=== PATIENT | male | born 1930 | race Two or more races ===

== ENCOUNTER 2018-10-12 01:39 | Inpatient (IN) | payer MEDICARE, BC ==
[2018-10-12] MEDS ORDERED: MORPHINE SULFATE 4 MG/ML SYRINGE IV STA (02:21)
[2018-10-12 02:43] LABS: Basophils % (A) 0 %; Eosinophils # (A) 0.1 k/uL (0-0.7); Eosinophils % (A) 2 %; HGB 14.8 gm/dL (13.0-17.5); Lymphocytes # (A) 2.1 k/uL (1.0-4.8); Lymphocytes % (A) 28 %; MCH 32.3 pg (25.0-35.0); MCHC 33.5 g/dL (31.0-37.0); MCV 96.1 fL (80.0-100.0); Mean Platelet Volume 7.6; Monocytes # (A) 0.4 k/uL (0-1.0); Monocytes % (A) 6 %; Neutrophils # (A) 4.5 k/uL (1.3-7.7); Neutrophils % (A) 61 %; Platelet Count 187 k/uL (150-450); RBC 4.58 m/uL (4.30-5.90); RDW 13.4 % (11.5-15.5); WBC 7.3 k/uL (3.8-10.6)
[2018-10-12 02:52] LABS: Albumin 4.1 g/dL (3.5-5.0); Calcium 9.2 mg/dL (8.4-10.2); Total Bilirubin 1.2 mg/dL (0.2-1.3); Total Protein 7.3 g/dL (6.3-8.2)
[2018-10-12 03:05] LABS: Potassium 5.2 mmol/L (3.5-5.1)
[2018-10-12] MEDS ORDERED: PIPERACILLIN-TAZOBACTAM 3.375 GM in SODIUM CHLORIDE 0.9% 100 ML IVPB STA (03:14)
--- NOTE | 2018-10-12 03:14 | CT ---
EXAMINATION TYPE: CT abdomen pelvis wo con DATE OF EXAM: 10/12/2018 COMPARISON: None HISTORY: Right flank pain. Abdominal pain CT DLP: 708.5 mGycm Automated exposure control for dose reduction was used. TECHNIQUE: Helical acquisition of images was performed from the lung bases through the pelvis. FINDINGS: There is coarse linear density at the lung bases consistent with scarring and subsegmental atelectasi s. Heart size is normal. There is atherosclerotic vascular calcification. There is a large pneumoperi toneum. Liver shows no focal defect. Spleen appears normal. There is no pancreatic mass. Gallbladder appears fairly normal. There is no adrenal mass. Kidneys have normal size and contour. There is bilateral renal parapelvic c ysts. There is no hydronephrosis. Ureters are not dilated. Abdominal aorta is atheromatous. There are sigmoid diverticula without sign of diverticulitis. Bladder distends smoothly. There is no evidence of a bowel obstruction. There is no ascites. There is small amount of fluid around the liver. There i s no mesenteric edema. There are spondylotic changes in the lumbar spine. I see no compression fractu re. There is bilateral posterior dislocation of the femoral heads. There is deformity of the acetabul a. This is a chronic posterior dislocation. 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 SOURCE OF THE AIR IS NOT IDENTIFIED. NO EVIDENCE OF A BOW EL OBSTRUCTION. COLONIC DIVERTICULOSIS WITHOUT SIGN OF DIVERTICULITIS. ATHEROSCLEROTIC VASCULAR DISEA SE. NO RENAL OBSTRUCTION. MILD SCARRING AND ATELECTASIS AT THE LUNG BASES. THE LATERAL POSTERIOR HIP DISLOCATIONS. THIS EXAM WAS DISCUSSED WITH ER PHYSICIAN AT 3:10 AM.
[2018-10-12] MEDS ORDERED: HYDROmorphone 1 MG/ML 1 ML SYRINGE IVP STA (03:16)
[2018-10-12] MEDS ORDERED: SODIUM CHLORIDE 0.9% 1,000 ML IV ONE (03:21)
--- NOTE | 2018-10-12 03:24 | ED ---
Abdominal Pain HPI - General Chief Complaint: Abdominal Pain Stated Complaint: abd pain Time Seen by Provider: 10/12/18 02:06 Source: patient Mode of arrival: EMS Limitations: no limitations - History of Present Illness Initial Comments: This patient is an 88-year-old man who presents to be evaluated for abdominal pain. He states that it started Sunday in the morning and was in the lower abdomen. States that later in the afternoon the pain seemed to shift to the upper part of the abdomen and tonight became severe. Pain is been constant. He denies noting any relieving factors. He states it is a little worse. Attempts to press on his abdomen. Patient denies vomiting or diarrhea area no change in urination. MD Complaint: abdominal pain Onset/Timin -: hour(s) Location: LUQ, RUQ, epigastric Migration to: other Severity: severe Quality: aching Consistency: constant Improves With: nothing Worsens With: nothing Associated Symptoms: nausea - Related Data Home Medications Medication Instructions Recorded Confirmed Acetaminophen Tab [Tylenol Tab] 325 mg PO BID PRN 09/22/15 09/22/15 Previous Rx's Medication Instructions Recorded Aspirin EC [Ecotrin Low Dose] 81 mg PO DAILY #1 tablet. 09/24/15 Atenolol [Tenormin] 25 mg PO DAILY #30 tab 09/24/15 Edoxaban Tosylate [Savaysa] 30 mg PO DAILY #30 tablet 09/24/15 Folic Acid 1 mg PO DAILY@1200 #30 tab 09/24/15 Furosemide [Lasix] 40 mg PO DAILY #30 tab 09/24/15 Lisinopril [Zestril] 5 mg PO DAILY #30 tab 09/24/15 Multivitamins, Thera [Multivitamin 1 each PO DAILY@1200 #30 tab 09/24/15 (formulary)] Nicotine 14Mg/24Hr Patch [Habitrol] 1 patch TRANSDERM DAILY #30 patch 09/24/15 Thiamine [Vitamin B-1] 100 mg PO DAILY@1200 #30 tab 09/24/15 Allergies Allergy/AdvReac Type Severity Reaction Status Date / Time Sulfa (Sulfonamide Allergy Unknown Verified 10/12/18 01:47 Antibiotics) Childhood Review of Systems ROS Statement: Those systems with pertinent positive or pertinent negative responses have been documented in the HPI. ROS Other: All systems not noted in ROS Statement are negative. Constitutional: Denies: fever, chills, weakness Respiratory: Denies: cough, dyspnea Cardiovascular: Denies: chest pain, palpitations, edema Gastrointestinal: Reports: abdominal pain, nausea. 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 Absent: scleral icterus, conjunctival injection ENT exam: Present: normal oropharynx Respiratory exam: Present: normal lung sounds bilaterally. Absent: respiratory distress, wheezes, rales, rhonchi, stridor Cardiovascular Exam: Present: regular rate, normal rhythm, normal heart sounds. Absent: systolic murmur, diastolic murmur, rubs, gallop GI/Abdominal exam: Present: distended, tenderness, hernia. Absent: guarding, rebound, rigid, mass, pulsatile mass Extremities exam: Present: normal inspection, normal capillary refill. Absent: pedal edema, calf tenderness Back exam: Present: normal inspection. Absent: CVA tenderness (R), CVA tenderness (L) Neurological exam: Present: alert Skin exam: Present: warm, dry, intact, normal color. Absent: rash Course Vital Signs 10/12/18 10/12/18 01:45 02:20 Temperature 98.6 F Pulse Rate 59 L 56 L Respiratory 17 17 Rate Blood Pressure 167/84 148/74 O2 Sat by Pulse 97 95 Oximetry - Reevaluation(s) Reevaluation #1: 10/12/18 03:23 Received call from the radiologist advising of free air on the computed tomography scan. I reviewed the films myself as well. I discussed results with the patient and have spoken with Dr. Harrison, who is the surgeon on-call. He states that he is going to call anesthesia about setting up OR and is going to see the patient. Patient started on additional IV fluid and antibiotics. Additional analgesia. I also called pharmacy to discuss whether any sort of reversal was required for patient's anticoagulant. Medical Decision Making - Lab Data Result diagrams: 10/12/18 02:11 10/12/18 02:11 Lab Results 10/12/18 10/12/18 Range/Units 02:11 02:11 WBC 7.3 (3.8-10.6) k/uL RBC 4.58 (4.30-5.90) m/uL Hgb 14.8 (13.0-17.5) gm/dL Hct 44.0 (39.0-53.0) % MCV 96.1 (80.0-100.0) fL MCH 32.3 (25.0-35.0) pg MCHC 33.5 (31.0-37.0) g/dL RDW 13.4 (11.5-15.5) % Plt Count 187 (150-450) k/uL Neutrophils % 61 % Lymphocytes % 28 % Monocytes % 6 % Eosinophils % 2 % Basophils % 0 % Neutrophils # 4.5 (1.3-7.7) k/uL Lymphocytes # 2.1 (1.0-4.8) k/uL Monocytes # 0.4 (0-1.0) k/uL Eosinophils # 0.1 (0-0.7) k/uL Basophils # 0.0 (0-0.2) k/uL Sodium 137 (137-145) mmol/L Potassium 5.2 H (3.5-5.1) mmol/L Chloride 104 (98-107) mmol/L Carbon Dioxide 26 (22-30) mmol/L Anion Gap 7 mmol/L BUN 26 H (9-20) mg/dL Creatinine 1.12 (0.66-1.25) mg/dL Est GFR (CKD-EPI)AfAm 68 (>60 ml/min/1.73 sqM) Est GFR (CKD-EPI)NonAf 59 (>60 ml/min/1.73 sqM) Glucose 142 H (74-99) mg/dL Calcium 9.2 (8.4-10.2) mg/dL Total Bilirubin 1.2 (0.2-1.3) mg/dL AST 35 (17-59) U/L ALT 32 (21-72) U/L Alkaline Phosphatase 50 (38-126) U/L Total Protein 7.3 (6.3-8.2) g/dL Albumin 4.1 (3.5-5.0) g/dL Amylase 76 (30-110) U/L Lipase 349 H (23-300) U/L Disposition Clinical Impression: Abdominal pain, Perforated abdominal viscus Disposition: ADMITTED IP TO THIS HOSP Condition: Serious Is patient prescribed a controlled substance at d/c from ED?: No Referrals: Lavern Valencia DO [Primary Care Provider] - 1-2 days
[2018-10-12 04:13] LABS: Appearance,Urine Clear (Clear); Bilirubin,Urine Negative (Negative); Blood,Urine Negative (Negative); Color,Urine Yellow; Glucose,Urine (UA) Negative (Negative); Ketones,Urine 1+ (Negative); Leukocyte Esterase,Urine Negative (Negative); Nitrite,Urine Negative (Negative); PH, Urine 5.5 (5.0-8.0); Protein,Urine Trace (Negative); Specific Gravity,Urine 1.022 (1.001-1.035)
[2018-10-12 04:15] LABS: Partial Thromboplastin Time 20.1 sec (22.0-30.0)
[2018-10-12] MEDS ORDERED: NALOXONE 0.4 MG/ML 1 ML VIAL IV PRN ×2 (05:54→08:15)
[2018-10-12] MEDS ORDERED: ONDANSETRON 4 MG/2 ML VIAL IVP PRN ×2 (05:54→08:17)
[2018-10-12] MEDS: HYDROmorphone 0.5 MG/0.5 ML SYRINGE IVP PRN ×2 (06:01→22:33)
[2018-10-12] MEDS: SODIUM CHLORIDE 0.9% 1,000 ML IV SCH ×3 (06:03→22:33)
--- NOTE | 2018-10-12 07:16 | P.GSHP ---
History of Present Illness H&P Date: 10/12/18 Chief Complaint: Acute abdominal pain This is an 88-year-old male who presents to the emergency room with acute abdominal pain. Patient underwent CAT scan was found have free air. Patient states his pain is a 9 out of 10. He looks extremely uncomfortable. 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 09/24/15 10/12/18 Rx Atenolol [Tenormin] 25 mg PO DAILY #30 tab 09/24/15 10/12/18 Rx Folic Acid 1 mg PO DAILY@1200 #30 tab 09/24/15 10/12/18 Rx Thiamine [Vitamin B-1] 100 mg PO DAILY@1200 #30 tab 09/24/15 10/12/18 Rx Allergies Allergy/AdvReac Type Severity Reaction Status Date / Time Sulfa (Sulfonamide Allergy Unknown Verified 10/12/18 01:47 Antibiotics) Childhood Surgical - Exam Vital Signs Temp Pulse Resp BP Pulse Ox 98.6 F 59 L 17 167/84 97 10/12/18 01:45 10/12/18 01:45 10/12/18 01:45 10/12/18 01:45 10/12/18 01:45 - General well developed, moderate distress - Eyes PERRL - ENT normal pinna - Neck no masses - Respiratory normal expansion - Cardiovascular Rhythm: regular - Abdomen Abdomen is firm with rebound tenderness. There is guarding. Results - Labs 10/12/18 02:11 10/12/18 02:11 Abnormal Lab Results - Last 24 Hours (Table) 10/12/18 10/12/18 10/12/18 Range/Units 02:11 02:11 03:35 APTT 20.1 L (22.0-30.0) sec Potassium 5.2 H (3.5-5.1) mmol/L BUN 26 H (9-20) mg/dL Glucose 142 H (74-99) mg/dL Lipase 349 H (23-300) U/L Urine Protein Trace H (Negative) Urine Ketones 1+ H (Negative) Diabetes panel 10/12/18 Range/Units 02:11 Sodium 137 (137-145) mmol/L Potassium 5.2 H (3.5-5.1) mmol/L Chloride 104 (98-107) mmol/L Carbon Dioxide 26 (22-30) mmol/L BUN 26 H (9-20) mg/dL Creatinine 1.12 (0.66-1.25) mg/dL Glucose 142 H (74-99) mg/dL Calcium 9.2 (8.4-10.2) mg/dL AST 35 (17-59) U/L ALT 32 (21-72) U/L Alkaline Phosphatase 50 (38-126) U/L Total Protein 7.3 (6.3-8.2) g/dL Albumin 4.1 (3.5-5.0) g/dL Calcium panel 10/12/18 Range/Units 02:11 Calcium 9.2 (8.4-10.2) mg/dL Albumin 4.1 (3.5-5.0) g/dL Pituitary panel 10/12/18 Range/Units 02:11 Sodium 137 (137-145) mmol/L Potassium 5.2 H (3.5-5.1) mmol/L Chloride 104 (98-107) mmol/L Carbon Dioxide 26 (22-30) mmol/L BUN 26 H (9-20) mg/dL Creatinine 1.12 (0.66-1.25) mg/dL Glucose 142 H (74-99) mg/dL Calcium 9.2 (8.4-10.2) mg/dL Adrenal panel 10/12/18 Range/Units 02:11 Sodium 137 (137-145) mmol/L Potassium 5.2 H (3.5-5.1) mmol/L Chloride 104 (98-107) mmol/L Carbon Dioxide 26 (22-30) mmol/L BUN 26 H (9-20) mg/dL Creatinine 1.12 (0.66-1.25) mg/dL Glucose 142 H (74-99) mg/dL Calcium 9.2 (8.4-10.2) mg/dL Total Bilirubin 1.2 (0.2-1.3) mg/dL AST 35 (17-59) U/L ALT 32 (21-72) U/L Alkaline Phosphatase 50 (38-126) U/L Total Protein 7.3 (6.3-8.2) g/dL Albumin 4.1 (3.5-5.0) g/dL - Imaging CT scan - abdomen: report reviewed (Evidence of free air) Assessment and Plan Assessment: Acute abdomen Free air Patient will undergo exploratory laparotomy as this patient the risk of possible bowel resection, colostomy.
[2018-10-12] MEDS ORDERED: SUCCINYLCHOLINE CHLORIDE 100 MG/5 ML SYR IV ONE (07:19)
[2018-10-12] MEDS ORDERED: fentaNYL (PF) 50 MCG/ML 2 ML AMP ONE (07:19)
[2018-10-12] MEDS ORDERED: ePHEDrine SULFATE/0.9% NACL/PF 50 MG/5 ML SYRINGE IV ONE (07:19)
[2018-10-12] MEDS ORDERED: PHENYLEPHRINE-0.9% NACL SYG 1 MG/10 ML SYRINGE ONE (07:19)
[2018-10-12] MEDS ORDERED: PROPOFOL 10 MG/ML 20 ML VIAL IV ONE (07:19)
[2018-10-12] MEDS ORDERED: IV FLUID CONTINUATION 450 ML IV ONE (07:19)
[2018-10-12] MEDS ORDERED: LIDOCAINE 1% INJ 10MG/ML (20 ML MDV) ONE (07:19)
[2018-10-12] MEDS ORDERED: ROCURONIUM BROMIDE 10 MG/ML 10 ML VIAL IV ONE (07:19)
[2018-10-12] MEDS ORDERED: ROPIVACAINE 5 MG/ML 30 ML VIAL ONE (07:19)
[2018-10-12] MEDS ORDERED: NEOSTIGMINE 1 MG/ML 10 ML VIAL ONE (07:19)
[2018-10-12] MEDS ORDERED: ONDANSETRON 4 MG/2 ML VIAL ONE (07:19)
[2018-10-12] MEDS ORDERED: GLYCOPYRROLATE 0.2 MG/ML 2 ML VIAL ONE (07:19)
[2018-10-12] MEDS ORDERED: LACTATED RINGERS 1,000 ML IV ONE ×3 (07:54→08:25)
[2018-10-12] MEDS ORDERED: HYDROmorphone 1 MG/ML 1 ML SYRINGE IVP PRN (08:15)
[2018-10-12] MEDS ORDERED: METOCLOPRAMIDE 5 MG/ML 2 ML VIAL IVP PRN (08:15)
--- NOTE | 2018-10-12 08:15 | P.OP ---
Date of Procedure: 10/12/18 Preoperative Diagnosis: Perforated viscus Postoperative Diagnosis: Perforated prepyloric duodenal ulcer Procedure(s) Performed: Exploratory laparotomy Gastrorrhaphy with Marv patch Anesthesia: MIMI Surgeon: Aleksandr Harrison Estimated Blood Loss (ml): 20 Pathology: other (Wound culture) Condition: stable Disposition: PACU Description of Procedure: Patient's placed on the operating table in the supine position. He received general anesthesia. His abdomen was prepped and draped in usual sterile fashion. The abdomen was explored through an upper midline incision. There was bilious fluid seen in the abdomen. A wound culture was performed. The duodenum was inspected and there was a 5 mm prepyloric ulcer. This was closed with 3-0 GI silk suture and a modified Marv patch. The abdomen was irrigated there is no other perforations seen. A ANTONY drain was placed over top of the ulcer repair. Brought out through separate stab incision in the right upper quadrant. The abdomen was irrigated with 3 L normal saline. The fascia is closed with looped #1 PDS suture. Skin was closed sukhjinder. Patient top she will was sent to recovery in stable condition.
[2018-10-12] MEDS ORDERED: HYDROmorphone 1 MG/ML 1 ML SYRINGE IVP ONE (08:30)
[2018-10-12] MEDS: ENOXAPARIN 40 MG/0.4 ML SYRINGE SQ SCH (10:45)
--- NOTE | 2018-10-12 11:53 | P.ONQ ---
Anesthesiology Proc Note - PNB - Peripheral Nerve Block Performed Bilateral Rectus Abdominis Single Time Out Performed: Yes (899) Procedure Start Time: 09:00 Procedure Stop Time: 09:10 Indication: Acute Post-Operative Pain, Dx/Pain Location (abdominal pain), Requested by physician Sedation Type: Sedate with meaningful contact maintained Position: Supine Catheter: None Needle Types: [employer] Needle Size: 50mm (2") Needle Gauge: 21 Technique: Ultrasound Injectate: 0.5% Ropivacaine (see comment for volume) (20ml 0.25% each side) Adjunct: Epinephrine (see comment for dilution ratio) (1:200,000) Blood Aspirated: No Pain Paresthesia on Injection Noted: No Resistance on Injection: Normal Events: Uneventful and Well Tolerated
[2018-10-12] MEDS: PANTOPRAZOLE 40 MG/10 ML VIAL IV SCH (21:10)
[2018-10-13 07:44] LABS: Basophils % (A) 0 %; Eosinophils % (A) 0 %; HCT 37.5 % (39.0-53.0); HGB 12.4 gm/dL (13.0-17.5); Lymphocytes # (A) 0.8 k/uL (1.0-4.8); Lymphocytes % (A) 9 %; MCH 31.6 pg (25.0-35.0); MCV 95.9 fL (80.0-100.0); Mean Platelet Volume 6.7; Monocytes # (A) 0.4 k/uL (0-1.0); Monocytes % (A) 5 %; Neutrophils # (A) 7.9 k/uL (1.3-7.7); Neutrophils % (A) 84 %; Platelet Count 145 k/uL (150-450); RBC 3.91 m/uL (4.30-5.90); RDW 13.4 % (11.5-15.5); WBC 9.4 k/uL (3.8-10.6)
[2018-10-13 08:22] LABS: Albumin 2.8 g/dL (3.5-5.0); Calcium 8.2 mg/dL (8.4-10.2); Potassium 4.7 mmol/L (3.5-5.1); Total Bilirubin 0.8 mg/dL (0.2-1.3); Total Protein 5.4 g/dL (6.3-8.2)
--- NOTE | 2018-10-13 09:44 | P.CONS ---
History of Present Illness - Reason for Consult Consult date: 10/12/18 Recommendations regarding antihypertensive medications - History of Present Illness 82-year-old the admitted for a perforated viscus secondary to peptic ulcer disease patient successfully underwent emergency laparotomy clinically doing well denied any symptoms patient has sluggish bowel sounds patient's abdominal surgical site area is clear patient is hypotensive takes atenolol at home which will be resumed. Patient any fever chills nausea vomiting patient the does have a العراقي catheter. Review of Systems REVIEW OF SYSTEMS: CONSTITUTIONAL: No fever, no malaise, no fatigue. HEENT: No recent visual problems or hearing problems. Denied any sore throat. CARDIOVASCULAR: No chest pain, orthopnea, PND, no palpitations, no syncope. PULMONARY: No shortness of breath, no cough, no hemoptysis. GASTROINTESTINAL: No diarrhea, no nausea, no vomiting, no abdominal pain. NEUROLOGICAL: No headaches, no weakness, no numbness. HEMATOLOGICAL: Denies any bleeding or petechiae. GENITOURINARY: Denies any burning micturition, frequency, or urgency. MUSCULOSKELETAL/RHEUMATOLOGICAL: Denies any joint pain, swelling, or any muscle pain. ENDOCRINE: Denies any polyuria or polydipsia. The rest of the 14-point review of systems is negative. 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 History of Any Multi-Drug Resistant Organisms: None Reported Past Surgical History: Adenoidectomy, Appendectomy, Tonsillectomy Past Psychological History: No Psychological Hx Reported Smoking Status: Current every day smoker Past Alcohol Use History: None Reported Past Drug Use History: None Reported - Past Family History Father Additional Family Medical History / Comment(s): macular degeneration Medications and Allergies Home Medications Medication Instructions Recorded Confirmed Type Acetaminophen Tab [Tylenol Tab] 325 mg PO BID PRN 09/22/15 10/12/18 History Aspirin EC [Ecotrin Low Dose] 81 mg PO DAILY #1 tablet. 09/24/15 10/12/18 Rx Atenolol [Tenormin] 25 mg PO DAILY #30 tab 09/24/15 10/12/18 Rx Folic Acid 1 mg PO DAILY@1200 #30 tab 09/24/15 10/12/18 Rx Thiamine [Vitamin B-1] 100 mg PO DAILY@1200 #30 tab 09/24/15 10/12/18 Rx Allergies Allergy/AdvReac Type Severity Reaction Status Date / Time Sulfa (Sulfonamide Allergy Unknown Verified 10/12/18 09:58 Antibiotics) Childhood Physical Exam Vitals: Vital Signs Temp Pulse Resp BP Pulse Ox 10/13/18 08:57 98.4 F 74 16 143/69 95 10/13/18 01:00 97.7 F 65 16 113/65 96 10/12/18 19:25 98.4 F 69 18 115/56 95 Intake and Output 10/12/18 10/13/18 10/13/18 22:59 06:59 14:59 Intake Total 375 1050 Output Total 515 Balance 375 535 Intake: Intake, IV Titration 375 1050 Amount Lactated Ringers 1,000 ml 1050 @ 150 mls/hr IV .Q6H40M [facility] Rx#:[id number] Sodium Chloride 0.9% 1, 375 000 ml @ 125 mls/hr IV . Q8H [facility] Rx#:[id number] Output: Drainage 65 Right Abdomen 65 Urine 450 Uretheral (العراقي) 450 Other: Voiding Method Indwelling Catheter Indwelling Catheter PHYSICAL EXAMINATION: GENERAL: The patient is alert and oriented x3, not in any acute distress. Well developed, well nourished. HEENT: Pupils are round and equally reacting to light. EOMI. No scleral icterus. No conjunctival pallor. Normocephalic, atraumatic. No pharyngeal erythema. No thyromegaly. CARDIOVASCULAR: S1 and S2 present. No murmurs, rubs, or gallops. PULMONARY: Chest is clear to auscultation, no wheezing or crackles. ABDOMEN: Soft, bowel sounds surgical site areas are clean MUSCULOSKELETAL: No joint swelling or deformity. EXTREMITIES: No cyanosis, clubbing, or pedal edema. NEUROLOGICAL: Gross neurological examination did not reveal any focal deficits. SKIN: No rashes. Results CBC & Chem 7: 10/13/18 06:47 10/13/18 06:47 Labs: Abnormal Lab Results - Last 24 Hours (Table) 10/13/18 10/13/18 Range/Units 06:47 06:47 RBC 3.91 L (4.30-5.90) m/uL Hgb 12.4 L (13.0-17.5) gm/dL Hct 37.5 L (39.0-53.0) % Plt Count 145 L (150-450) k/uL Neutrophils # 7.9 H (1.3-7.7) k/uL Lymphocytes # 0.8 L (1.0-4.8) k/uL Chloride 108 H (98-107) mmol/L BUN 21 H (9-20) mg/dL Glucose 126 H (74-99) mg/dL Calcium 8.2 L (8.4-10.2) mg/dL Alkaline Phosphatase 35 L (38-126) U/L Total Protein 5.4 L (6.3-8.2) g/dL Albumin 2.8 L (3.5-5.0) g/dL Microbiology - Last 24 Hours (Table) 10/12/18 03:35 Blood Culture - Preliminary Blood No Growth after 24 hours Assessment and Plan Plan: -Status post laparotomy day 0 for perforated viscus: Patient is clinically doing well continue with Protonix avoid the opiates considering his age. Can use Tylenol and tramadol for pain. -Hypertension patient will be resumed on beta barrie once his blood pressure gets better -Atrial fibrillation not on any anticoagulation at this time patient is on atenolol which will be resumed once his blood pressure gets better -DVT in the past: Patient will need pharmacologic due to prophylaxis -Nicotine abuse
[2018-10-13] MEDS: PANTOPRAZOLE 40 MG/10 ML VIAL IV SCH (10:13)
[2018-10-13] MEDS: SODIUM CHLORIDE 0.9% 1,000 ML IV SCH ×3 (10:14→22:23)
[2018-10-13] MEDS: ENOXAPARIN 40 MG/0.4 ML SYRINGE SQ SCH (10:14)
[2018-10-13] MEDS: THIAMINE 100 MG TAB PO SCH (12:00)
[2018-10-13] MEDS: FOLIC ACID 1 MG TAB PO SCH (12:00)
--- NOTE | 2018-10-13 14:57 | P.PN ---
Progress Note - Text Progress Note Date: 10/13/18 The patient is resting comfortably in his bed. He feels well. He has some incisional pain. On exam his vital signs are stable. His abdomen soft. Incision site is clean dry and intact. The patient's postoperative day 1 from repair of prepyloric duodenal ulcer. The patient will remain nothing by mouth. We anticipate starting his diet tomorrow.
--- NOTE | 2018-10-13 17:21 | P.PN ---
Subjective 82-year-old the admitted for a perforated viscus secondary to peptic ulcer disease patient successfully underwent emergency laparotomy clinically doing well denied any symptoms patient has sluggish bowel sounds patient's abdominal surgical site area is clear patient is hypotensive takes atenolol at home which will be resumed. Patient any fever chills nausea vomiting patient the does have a العراقي catheter. 10/13/2018 Patient does not comparing and if any of pain except when he coughs. Patient still has an NG tube which is still draining will change the fluids 100 mL/h which recheck basic metabolic profile tomorrow. Patient's has sluggish bowel sounds. Did not move his bowel yet. Will use Tylenol for pain and tramadol for pain pain try to avoid opiate analgesia considering his age. Constitutional: Denied any fatigue denied any fever. Cardio vascular: denied any chest pain, palpitations Gastrointestinal denied any nausea vomiting Pulmonary: Denied any shortness of breath cough Neurologic denied any new focal deficits All inpatient medications were reviewed and appropriate changes in these medications as dictated in the interval history and assessment and plan. Objective - Vital Signs Vital signs: Vital Signs Temp 97.7 F 10/13/18 15:00 Pulse 104 H 10/13/18 15:00 Resp 12 10/13/18 15:00 BP 114/68 10/13/18 15:00 Pulse Ox 99 10/13/18 15:00 Intake & Output 10/12/18 10/13/18 10/13/18 18:59 06:59 18:59 Intake Total 1750 1425 Output Total 330 515 Balance 1420 910 Intake: IV 1750 Intake, IV Titration 1425 Amount Lactated Ringers 1,000 ml 1050 @ 150 mls/hr IV .Q6H40M [facility] Rx#:[id number] Sodium Chloride 0.9% 1, 375 000 ml @ 125 mls/hr IV . Q8H [facility] Rx#:[id number] Output: Gastric Drainage 50 Drainage 65 Right Abdomen 65 Urine 230 450 Uretheral (العراقي) 450 Estimated Blood Loss 50 Other: Voiding Method Indwelling Catheter Indwelling Catheter Indwelling Catheter - Exam PHYSICAL EXAMINATION: GENERAL: The patient is alert and oriented x3, not in any acute distress. Well developed, well nourished. NG tube in place HEENT: Pupils are round and equally reacting to light. EOMI. No scleral icterus. No conjunctival pallor. Normocephalic, atraumatic. No pharyngeal erythema. No thyromegaly. CARDIOVASCULAR: S1 and S2 present. No murmurs, rubs, or gallops. PULMONARY: Chest is clear to auscultation, no wheezing or crackles. ABDOMEN: Soft, bowel sounds surgical site areas are clean MUSCULOSKELETAL: No joint swelling or deformity. EXTREMITIES: No cyanosis, clubbing, or pedal edema. NEUROLOGICAL: Gross neurological examination did not reveal any focal deficits. SKIN: No rashes. - Labs CBC & Chem 7: 10/13/18 06:47 10/13/18 06:47 Labs: Abnormal Lab Results - Last 24 Hours (Table) 10/13/18 10/13/18 Range/Units 06:47 06:47 RBC 3.91 L (4.30-5.90) m/uL Hgb 12.4 L (13.0-17.5) gm/dL Hct 37.5 L (39.0-53.0) % Plt Count 145 L (150-450) k/uL Neutrophils # 7.9 H (1.3-7.7) k/uL Lymphocytes # 0.8 L (1.0-4.8) k/uL Chloride 108 H (98-107) mmol/L BUN 21 H (9-20) mg/dL Glucose 126 H (74-99) mg/dL Calcium 8.2 L (8.4-10.2) mg/dL Alkaline Phosphatase 35 L (38-126) U/L Total Protein 5.4 L (6.3-8.2) g/dL Albumin 2.8 L (3.5-5.0) g/dL Microbiology - Last 24 Hours (Table) 10/12/18 08:05 Gram Stain - Preliminary Abdomen Wound Culture - Preliminary 10/12/18 08:05 Anaerobic Culture - Preliminary Peritoneal Fluid 10/12/18 03:35 Blood Culture - Preliminary Blood No Growth after 24 hours Assessment and Plan Plan: -Status post laparotomy day 1 for perforated viscus: Patient is clinically doing well continue with Protonix avoid the opiates considering his age. Can use Tylenol and tramadol for pain. Patient can use to have NG tube drainage. He with IV fluids -Hypertension patient will be resumed on beta barrie once his blood pressure gets better and when he can tolerate oral diet -Atrial fibrillation not on any anticoagulation at this time patient is on atenolol which will be resumed once his blood pressure gets better -DVT in the past: Patient will need pharmacologic due to prophylaxis -Nicotine abuse
[2018-10-14] MEDS: SODIUM CHLORIDE 0.9% 1,000 ML IV SCH ×3 (03:27→23:37)
[2018-10-14] MEDS: ATENOLOL 25 MG TAB PO SCH (10:13)
[2018-10-14] MEDS: FOLIC ACID 1 MG TAB PO SCH (10:13)
[2018-10-14] MEDS: PANTOPRAZOLE 40 MG/10 ML VIAL IV SCH (10:13)
[2018-10-14] MEDS: THIAMINE 100 MG TAB PO SCH (10:13)
[2018-10-14] MEDS: ENOXAPARIN 40 MG/0.4 ML SYRINGE SQ SCH (10:14)
--- NOTE | 2018-10-14 10:55 | P.PN ---
Subjective Progress Note Date: 10/14/18 HISTORY OF PRESENT ILLNESS: Patient is status post repair of prepyloric duodenal ulcer. The patient is currently nothing by mouth. NG tube intact with minimal drainage. He denies passing flatus. His pain is tolerable at this time. PHYSICAL EXAM: VITAL SIGNS: Currently stable. GENERAL: Well-developed in no acute distress. HEENT: No sclera icterus. Extraocular movements grossly intact. Moist buccal mucosa. Head is atraumatic, normocephalic. Hears conversational speech. No nasal drainage. NECK: Supple without lymphadenopathy. CHEST: Non-labored respirations and equal bilateral excursions. CARDIOVASCULAR: Regular rate with regular rhythm. Palpable 2+ radial pulses. ABDOMEN: Soft. Mildly distended. Hypoactive bowel sounds. MUSCULOSKELETAL: No clubbing, cyanosis or edema. NEUROLOGIC: No focal or lateralizing signs. Cranial nerves II through XII grossly intact. PSYCH: Appropriate affect. Alert and oriented to person, place and time. SKIN: Well perfused. Good skin turgor. ASSESSMENT: 1. Status post repair of prepyloric duodenal ulcer PLAN: 1. May discontinue NG 2. May begin ice chips only. Will only when patient begins passing flatus 3. Begin Reglan 10mg IV Q6 hours Nurse practitioner note has been reviewed by physician. Signing provider agrees with the documented findings, assessment, and plan of care. Objective - Vital Signs Vital signs: Vital Signs Temp 97.7 F 10/14/18 09:41 Pulse 105 H 10/14/18 09:41 Resp 16 10/14/18 09:41 BP 117/71 10/14/18 09:41 Pulse Ox 92 L 10/14/18 09:41 Intake & Output 10/13/18 10/14/18 10/14/18 18:59 06:59 18:59 Intake Total 1500 1250 Output Total 850 530 Balance 650 720 Intake: Intake, IV Titration 1500 1250 Amount Sodium Chloride 0.9% 1, 1500 1250 000 ml @ 125 mls/hr IV . Q8H [facility] Rx#:[id number] Output: Gastric Drainage 100 Drainage 50 30 Right Abdomen 50 30 Urine 700 500 Uretheral (العراقي) 700 300 Other: Voiding Method Indwelling Catheter Indwelling Catheter Indwelling Catheter - Labs CBC & Chem 7: 10/13/18 06:47 10/13/18 06:47 Labs: Microbiology - Last 24 Hours (Table) 10/12/18 08:05 Gram Stain - Preliminary Abdomen Wound Culture - Preliminary 10/12/18 03:35 Blood Culture - Preliminary Blood No Growth after 48 hours 10/12/18 08:05 Anaerobic Culture - Preliminary Peritoneal Fluid
[2018-10-14] MEDS: METOCLOPRAMIDE 5 MG/ML 2 ML VIAL IVP SCH ×3 (12:14→23:36)
--- NOTE | 2018-10-14 18:01 | P.PN ---
Subjective Progress Note Date: 10/14/18 Interval history:82-year-old the admitted for a perforated viscus secondary to peptic ulcer disease patient successfully underwent emergency laparotomy clinically doing well denied any symptoms patient has sluggish bowel sounds patient's abdominal surgical site area is clear patient is hypotensive takes atenolol at home which will be resumed. Patient any fever chills nausea vomiting patient the does have a العر[place] catheter. 10/13/2018 Patient does not comparing and if any of pain except when he coughs. Patient still has an NG tube which is still draining will change the fluids 100 mL/h which recheck basic metabolic profile tomorrow. Patient's has sluggish bowel sounds. Did not move his bowel yet. Will use Tylenol for pain and tramadol for pain pain try to avoid opiate analgesia considering his age. 10/14/2018 passing flatus, no bowel movement. NG with minimal drainage.Pain controlled. IV fluids decreased to 100 MLS per hour. Afebrile, normal WBC. Constitutional: Denied any fatigue denied any fever. Cardio vascular: denied any chest pain, palpitations Gastrointestinal denied any nausea vomiting Pulmonary: Denied any shortness of breath cough Neurologic denied any new focal deficits Active Medications Atenolol (Tenormin) 25 mg PO DAILY [facility] Last Admin: 10/14/18 10:13 Dose: 25 mg Enoxaparin Sodium (Lovenox) 40 mg SQ DAILY [facility] Last Admin: 10/14/18 10:14 Dose: 40 mg Folic Acid (Folic Acid) 1 mg PO DAILY@1200 [facility] Last Admin: 10/14/18 10:13 Dose: 1 mg Hydromorphone HCl (Dilaudid) 0.5 mg IVP Q3HR PRN PRN Reason: Moderate Pain Last Admin: 10/12/18 22:33 Dose: 0.5 mg Sodium Chloride (Saline 0.9%) 1,000 mls @ 100 mls/hr IV .Q10H [facility] Last Admin: 10/14/18 16:49 Dose: 125 mls/hr Metoclopramide HCl (Reglan) 10 mg IVP Q6H PRN PRN Reason: Nausea And Vomiting Metoclopramide HCl (Reglan) 10 mg IVP Q6HR [facility] Last Admin: 10/14/18 16:45 Dose: 10 mg Naloxone HCl (Narcan) 0.2 mg IV Q2M PRN PRN Reason: Opioid Reversal Ondansetron HCl (Zofran) 4 mg IVP Q3HR PRN PRN Reason: Nausea And Vomiting Pantoprazole Sodium (Protonix) 40 mg IV DAILY [facility] Last Admin: 10/14/18 10:13 Dose: 40 mg Thiamine HCl (Vitamin B-1) 100 mg PO DAILY@1200 [facility] Last Admin: 10/14/18 10:13 Dose: 100 mg Objective - Vital Signs Vital signs: Vital Signs Temp 98.3 F 10/14/18 15:00 Pulse 90 10/14/18 15:00 Resp 15 10/14/18 16:52 BP 107/70 10/14/18 15:00 Pulse Ox 90 L 10/14/18 15:00 Intake & Output 10/13/18 10/14/18 10/14/18 18:59 06:59 18:59 Intake Total 1500 1250 1000 Output Total 850 530 420 Balance 650 720 580 Intake: Intake, IV Titration 1500 1250 1000 Amount Sodium Chloride 0.9% 1, 1500 1250 1000 000 ml @ 125 mls/hr IV . Q8H [facility] Rx#:[id number] Output: Gastric Drainage 100 Drainage 50 30 20 Right Abdomen 50 30 20 Urine 700 500 400 Uretheral (العراق[place]) 700 300 400 Other: Voiding Method Indwelling Catheter Indwelling Catheter Indwelling Catheter - Exam GENERAL: The patient is sitting up in a chair, alert and oriented x3, no acute distress. HEENT: Pupils are round and equally reacting to light. EOMI. No scleral icterus. No conjunctival pallor. Normocephalic, atraumatic. NG tube present. CARDIOVASCULAR: S1 and S2 present. No murmurs, rubs, or gallops. PULMONARY: Chest is clear to auscultation, no wheezing or crackles. ABDOMEN: Soft, bowel sounds, S/P surgery, surgical site areas are clean, hypoactive bowel sounds MUSCULOSKELETAL: No joint swelling or deformity. EXTREMITIES: No cyanosis, clubbing, or pedal edema. NEUROLOGICAL: Gross neurological examination did not reveal any focal deficits. SKIN: No rashes. Microbiology 10/12/18 08:05 Abdomen Gram Stain - Preliminary 10/12/18 08:05 Abdomen Wound Culture - Preliminary 10/12/18 03:35 Blood Blood Culture - Preliminary No Growth after 48 hours 10/12/18 08:05 Peritoneal Fluid Anaerobic Culture - Preliminary - Labs CBC & Chem 7: 10/13/18 06:47 10/13/18 06:47 Labs: Microbiology - Last 24 Hours (Table) 10/12/18 08:05 Gram Stain - Preliminary Abdomen Wound Culture - Preliminary 10/12/18 03:35 Blood Culture - Preliminary Blood No Growth after 48 hours Assessment and Plan Assessment: -Status post laparotomy day 1 for perforated viscus: Patient is clinically doing well continue with Protonix avoid the opiates considering his age. Can use Tylenol and tramadol for pain. Patient can use to have NG tube drainage. He with IV fluids -Hypertension patient will be resumed on beta barrie once his blood pressure gets better and when he can tolerate oral diet -Atrial fibrillation not on any anticoagulation at this time patient is on atenolol which will be resumed once his blood pressure gets better -DVT in the past: Patient will need pharmacologic due to prophylaxis -Nicotine abuse Plan: Continue current medication regime , Reglan, monitoring and symptomatic treatment. NG tube removal/diet advancement as per surgery. Increase ambulation as tolerated. Aggressive pulmonary toileting with incentive spirometer reinforced. IV fluid rate decreased with chest x-ray ordered for a.m. Wound/Peritoneal cultures pending. The impression and plan of care has been dictated as directed. : I performed a history and examination of this patient, discussed the same with the dictator. I agree with the dictator's note ,documented as a scribe. Any additional findings or plans will be noted.
[2018-10-15] MEDS: HYDROmorphone 0.5 MG/0.5 ML SYRINGE IVP PRN (04:44)
[2018-10-15] MEDS: METOCLOPRAMIDE 5 MG/ML 2 ML VIAL IVP SCH ×3 (05:40→17:48)
--- NOTE | 2018-10-15 07:48 | XR ---
EXAMINATION TYPE: XR chest 2V DATE OF EXAM: 10/15/2018 COMPARISON: Chest x-ray and CTA chest September 22, 2015. HISTORY: Hypoxia. TECHNIQUE: Frontal and lateral views of the chest are obtained. FINDINGS: The cardiac silhouette size is upper limits of normal. Small bilateral pleural effusions ar e now present with associated bibasilar atelectasis and/or infiltrate. Mild central vascular congesti on is now seen. No pneumothorax is noted bilaterally. Atherosclerotic and ectatic thoracic aorta is n oted. The osseous structures are intact. IMPRESSION: Correlate for CHF exacerbation or fluid overload state as there are new small bilateral pleural effusions and mild central vascular congestion present. Associated bibasilar atelectasis and/ or infiltrate is noted.
[2018-10-15] MEDS: PANTOPRAZOLE 40 MG/10 ML VIAL IV SCH (08:42)
[2018-10-15] MEDS: THIAMINE 100 MG TAB PO SCH (08:43)
[2018-10-15] MEDS: ENOXAPARIN 40 MG/0.4 ML SYRINGE SQ SCH (08:43)
[2018-10-15] MEDS: FOLIC ACID 1 MG TAB PO SCH (08:43)
[2018-10-15] MEDS: ATENOLOL 25 MG TAB PO SCH (08:43)
[2018-10-15 11:45] LABS: Basophils % (A) 0 %; Eosinophils # (A) 0.1 k/uL (0-0.7); Eosinophils % (A) 0 %; HCT 40.7 % (39.0-53.0); HGB 13.6 gm/dL (13.0-17.5); Lymphocytes # (A) 1.3 k/uL (1.0-4.8); Lymphocytes % (A) 10 %; MCH 31.8 pg (25.0-35.0); MCHC 33.3 g/dL (31.0-37.0); MCV 95.4 fL (80.0-100.0); Mean Platelet Volume 7.1; Monocytes # (A) 0.5 k/uL (0-1.0); Monocytes % (A) 4 %; Neutrophils # (A) 10.8 k/uL (1.3-7.7); Neutrophils % (A) 85 %; Platelet Count 191 k/uL (150-450); RBC 4.26 m/uL (4.30-5.90); RDW 13.3 % (11.5-15.5); WBC 12.8 k/uL (3.8-10.6)
[2018-10-15 11:56] LABS: Calcium 8.1 mg/dL (8.4-10.2); Potassium 4.1 mmol/L (3.5-5.1)
--- NOTE | 2018-10-15 12:34 | P.PN ---
Subjective Progress Note Date: 10/15/18 HISTORY OF PRESENT ILLNESS: Patient is status post repair of prepyloric duodenal ulcer. Patient states his pain is tolerable at this time. ANTONY drain is intact with serosanguineous drainage. He is passing flatus. He had a bowel movement this morning. He is tolerating ice chips. PHYSICAL EXAM: VITAL SIGNS: Currently stable. GENERAL: Well-developed in no acute distress. HEENT: No sclera icterus. Extraocular movements grossly intact. Moist buccal mucosa. Head is atraumatic, normocephalic. Hears conversational speech. No nasal drainage. NECK: Supple without lymphadenopathy. CHEST: Non-labored respirations and equal bilateral excursions. CARDIOVASCULAR: Regular rate with regular rhythm. Palpable 2+ radial pulses. ABDOMEN: Soft. Mildly distended. Hypoactive bowel sounds. MUSCULOSKELETAL: No clubbing, cyanosis or edema. NEUROLOGIC: No focal or lateralizing signs. Cranial nerves II through XII grossly intact. PSYCH: Appropriate affect. Alert and oriented to person, place and time. SKIN: Well perfused. Good skin turgor. ASSESSMENT: 1. Status post repair of prepyloric duodenal ulcer PLAN: 1. Continue Reglan 2. May begin clear liquid diet. Advance as tolerated 3. Activity as tolerated 4. Incentive spirometry 5. Discontinue IV fluids 6. Lasix IV x 1 dose 7. Discontinue urinary catheter Nurse practitioner note has been reviewed by physician. Signing provider agrees with the documented findings, assessment, and plan of care. Objective - Vital Signs Vital signs: Vital Signs Temp 98.2 F 10/15/18 08:46 Pulse 64 10/15/18 08:46 Resp 18 10/15/18 08:46 BP 126/66 10/15/18 08:46 Pulse Ox 91 L 10/15/18 08:46 Intake & Output 10/14/18 10/15/18 10/15/18 18:59 06:59 18:59 Intake Total 1000 350 Output Total 420 575 500 Balance 580 -225 -500 Intake: Intake, IV Titration 1000 350 Amount Sodium Chloride 0.9% 1, 1000 350 000 ml @ 100 mls/hr IV . Q10H [facility] Rx#:[id number] Output: Drainage 20 Right Abdomen 20 Urine 400 575 500 Uretheral (العراقي) 400 500 Other: Voiding Method Indwelling Catheter Indwelling Catheter Indwelling Catheter # Bowel Movements 1 - Labs CBC & Chem 7: 10/15/18 11:23 10/15/18 11:23 Labs: Abnormal Lab Results - Last 24 Hours (Table) 10/15/18 10/15/18 Range/Units 11:23 11:23 WBC 12.8 H (3.8-10.6) k/uL RBC 4.26 L (4.30-5.90) m/uL Neutrophils # 10.8 H (1.3-7.7) k/uL Chloride 112 H (98-107) mmol/L Carbon Dioxide 20 L (22-30) mmol/L BUN 24 H (9-20) mg/dL Calcium 8.1 L (8.4-10.2) mg/dL Microbiology - Last 24 Hours (Table) 10/12/18 08:05 Anaerobic Culture - Preliminary Peritoneal Fluid 10/12/18 08:05 Gram Stain - Final Abdomen Wound Culture - Final 10/12/18 03:35 Blood Culture - Preliminary Blood No Growth after 72 hours
[2018-10-15] MEDS ORDERED: FUROSEMIDE 10 MG/ML 2 ML VIAL IV ONE (12:45)
[2018-10-15] MEDS ORDERED: FUROSEMIDE 10 MG/ML 2 ML VIAL IV STA (16:06)
[2018-10-15] MEDS: SODIUM CHLORIDE 0.9% 1,000 ML IV SCH (19:00)
--- NOTE | 2018-10-15 20:23 | P.PN ---
Subjective Progress Note Date: 10/15/18 Interval history:82-year-old the admitted for a perforated viscus secondary to peptic ulcer disease patient successfully underwent emergency laparotomy clinically doing well denied any symptoms patient has sluggish bowel sounds patient's abdominal surgical site area is clear patient is hypotensive takes atenolol at home which will be resumed. Patient any fever chills nausea vomiting patient the does have a [place]عر[place] catheter. 10/13/2018 Patient does not comparing and if any of pain except when he coughs. Patient still has an NG tube which is still draining will change the fluids 100 mL/h which recheck basic metabolic profile tomorrow. Patient's has sluggish bowel sounds. Did not move his bowel yet. Will use Tylenol for pain and tramadol for pain pain try to avoid opiate analgesia considering his age. 10/14/2018 passing flatus, no bowel movement. NG with minimal drainage.Pain controlled. IV fluids decreased to 100 MLS per hour. Afebrile, normal WBC. 10/15/2018 sitting up in chair, pain controlled. chest x-ray suggestive of fluid overload, small new bilateral pleural effusions. IV fluids discontinued. Positive bowel movement, burping, positive flatus. Diet advanced as per surgery. Sodium 142. Afebrile, WBC 12.8. Creatinine 0.9. Hemoglobin 13.6. Constitutional: Denied any fatigue denied any fever. Cardio vascular: denied any chest pain, palpitations Gastrointestinal denied any nausea vomiting Pulmonary: Denied any shortness of breath cough Neurologic denied any new focal deficits Active Medications Atenolol (Tenormin) 25 mg PO DAILY [facility] Last Admin: 10/14/18 10:13 Dose: 25 mg Enoxaparin Sodium (Lovenox) 40 mg SQ DAILY [facility] Last Admin: 10/14/18 10:14 Dose: 40 mg Folic Acid (Folic Acid) 1 mg PO DAILY@1200 [facility] Last Admin: 10/14/18 10:13 Dose: 1 mg Hydromorphone HCl (Dilaudid) 0.5 mg IVP Q3HR PRN PRN Reason: Moderate Pain Last Admin: 10/12/18 22:33 Dose: 0.5 mg Sodium Chloride (Saline 0.9%) 1,000 mls @ 100 mls/hr IV .Q10H [facility] Last Admin: 10/14/18 16:49 Dose: 125 mls/hr Metoclopramide HCl (Reglan) 10 mg IVP Q6H PRN PRN Reason: Nausea And Vomiting Metoclopramide HCl (Reglan) 10 mg IVP Q6HR [facility] Last Admin: 10/14/18 16:45 Dose: 10 mg Naloxone HCl (Narcan) 0.2 mg IV Q2M PRN PRN Reason: Opioid Reversal Ondansetron HCl (Zofran) 4 mg IVP Q3HR PRN PRN Reason: Nausea And Vomiting Pantoprazole Sodium (Protonix) 40 mg IV DAILY [facility] Last Admin: 10/14/18 10:13 Dose: 40 mg Thiamine HCl (Vitamin B-1) 100 mg PO DAILY@1200 [facility] Last Admin: 10/14/18 10:13 Dose: 100 mg Objective - Vital Signs Vital signs: Vital Signs Temp 98.0 F 10/15/18 15:00 Pulse 66 10/15/18 15:00 Resp 18 10/15/18 15:00 BP 126/62 10/15/18 15:00 Pulse Ox 92 L 10/15/18 15:00 Intake & Output 10/15/18 10/15/18 10/16/18 06:59 18:59 06:59 Intake Total 350 440 Output Total 575 820 Balance -225 -380 Intake: Intake, IV Titration 350 100 Amount Sodium Chloride 0.9% 1, 350 100 000 ml @ 50 mls/hr IV . Q20H [facility] Rx#:[id number] Oral 340 Output: Drainage 20 Right Abdomen 20 Urine 575 800 Uretheral (العراقي) 500 Other: Voiding Method Indwelling Catheter Indwelling Catheter # Bowel Movements 1 - Exam GENERAL: The patient is sitting up in a chair, alert and oriented x3, no acute distress. HEENT: Pupils are round and equally reacting to light. EOMI. No scleral icterus. No conjunctival pallor. Normocephalic, atraumatic. Oral mucosa moist CARDIOVASCULAR: S1 and S2 present. No murmurs, rubs, or gallops. PULMONARY: Nonlabored, Chest is clear to auscultation, diminished bilateral bases, no wheezing or crackles. ABDOMEN: Soft, bowel sounds, S/P surgery, surgical site areas are clean, hypoactive bowel sounds MUSCULOSKELETAL: No joint swelling or deformity. EXTREMITIES: No cyanosis, clubbing, or pedal edema. NEUROLOGICAL: Gross neurological examination did not reveal any focal deficits. SKIN: No rashes. - Labs CBC & Chem 7: 10/15/18 11:23 10/15/18 11:23 Labs: Abnormal Lab Results - Last 24 Hours (Table) 10/15/18 10/15/18 Range/Units 11:23 11:23 WBC 12.8 H (3.8-10.6) k/uL RBC 4.26 L (4.30-5.90) m/uL Neutrophils # 10.8 H (1.3-7.7) k/uL Chloride 112 H (98-107) mmol/L Carbon Dioxide 20 L (22-30) mmol/L BUN 24 H (9-20) mg/dL Calcium 8.1 L (8.4-10.2) mg/dL Microbiology - Last 24 Hours (Table) 10/12/18 08:05 Anaerobic Culture - Preliminary Peritoneal Fluid 10/12/18 08:05 Gram Stain - Final Abdomen Wound Culture - Final 10/12/18 03:35 Blood Culture - Preliminary Blood No Growth after 72 hours Assessment and Plan Assessment: -Status post laparotomy for perforated viscu -Hypertension -Atrial fibrillation, currently on Lovenox -DVT in the past -Nicotine abuse -Fluid overload, new small bilateral pleural effusions Plan: Continue current medication regime , monitoring and symptomatic treatment. Diet advancement as per surgery .PIVL IV. Lasix 20mg IVP X 1. Follow-up chest x-ray in a.m.Aggressive pulmonary toileting with incentive spirometer reinforced. Peritoneal fluid cultures pending. Increase activity as tolerated. PT/OT. Subacute rehab at discharge. The impression and plan of care has been dictated as directed. : I performed a history and examination of this patient, discussed the same with the dictator. I agree with the dictator's note ,documented as a scribe. Any additional findings or plans will be noted.
[2018-10-16] MEDS: METOCLOPRAMIDE 5 MG/ML 2 ML VIAL IVP SCH ×4 (00:46→17:36)
[2018-10-16 07:22] LABS: Basophils % (A) 0 %; Eosinophils # (A) 0.3 k/uL (0-0.7); Eosinophils % (A) 3 %; HCT 43.2 % (39.0-53.0); HGB 13.8 gm/dL (13.0-17.5); Lymphocytes # (A) 1.8 k/uL (1.0-4.8); Lymphocytes % (A) 16 %; MCH 30.9 pg (25.0-35.0); MCV 96.6 fL (80.0-100.0); Mean Platelet Volume 7.1; Monocytes # (A) 0.4 k/uL (0-1.0); Monocytes % (A) 3 %; Neutrophils # (A) 8.8 k/uL (1.3-7.7); Neutrophils % (A) 76 %; Platelet Count 216 k/uL (150-450); RBC 4.47 m/uL (4.30-5.90); RDW 13.1 % (11.5-15.5); WBC 11.5 k/uL (3.8-10.6)
[2018-10-16 07:29] LABS: Calcium 8.3 mg/dL (8.4-10.2); Potassium 3.4 mmol/L (3.5-5.1)
--- NOTE | 2018-10-16 07:55 | XR ---
EXAMINATION TYPE: XR chest 2V DATE OF EXAM: 10/16/2018 COMPARISON: 10/15/2018 HISTORY: 88-year-old male follow-up fluid overload, pleural effusions TECHNIQUE: AP and lateral views FINDINGS: Heart borderline enlarged. Mild elongation thoracic aorta. Mild interstitial prominence similar. Cont inued small pleural effusions with adjacent bibasilar opacities. IMPRESSION: Overall stable mild pulmonary vascular congestion along with small right greater left pleural effusio ns with adjacent atelectasis and/or consolidation.
[2018-10-16] MEDS: ENOXAPARIN 40 MG/0.4 ML SYRINGE SQ SCH (08:02)
[2018-10-16] MEDS: PANTOPRAZOLE 40 MG/10 ML VIAL IV SCH (08:02)
[2018-10-16] MEDS: ATENOLOL 25 MG TAB PO SCH (08:02)
[2018-10-16] MEDS ORDERED: Potassium Replacement Protocol 1 EACH MISC MISCELLANE PRN (09:53)
--- NOTE | 2018-10-16 10:56 | P.PN ---
Subjective Progress Note Date: 10/16/18 HISTORY OF PRESENT ILLNESS: Patient is status post repair of prepyloric duodenal ulcer. Patient states his pain is tolerable at this time. ANTONY drain is intact with minimal serosanguineous drainage. He is passing flatus. +BM. Tolerating clear liquid diet. PHYSICAL EXAM: VITAL SIGNS: Currently stable. GENERAL: Well-developed in no acute distress. HEENT: No sclera icterus. Extraocular movements grossly intact. Moist buccal mucosa. Head is atraumatic, normocephalic. Hears conversational speech. No nasal drainage. NECK: Supple without lymphadenopathy. CHEST: Non-labored respirations and equal bilateral excursions. CARDIOVASCULAR: Regular rate with regular rhythm. Palpable 2+ radial pulses. ABDOMEN: Soft. Mildly distended. Hypoactive bowel sounds. MUSCULOSKELETAL: No clubbing, cyanosis or edema. NEUROLOGIC: No focal or lateralizing signs. Cranial nerves II through XII grossly intact. PSYCH: Appropriate affect. Alert and oriented to person, place and time. SKIN: Well perfused. Good skin turgor. ASSESSMENT: 1. Status post repair of prepyloric duodenal ulcer PLAN: 1. Advance diet to full liquid diet 2. Incentive spirometry 3. Activity as tolerated Nurse practitioner note has been reviewed by physician. Signing provider agrees with the documented findings, assessment, and plan of care. Objective - Vital Signs Vital signs: Vital Signs Temp 97.6 F 10/16/18 07:00 Pulse 81 10/16/18 07:00 Resp 18 10/16/18 08:00 BP 137/75 10/16/18 07:00 Pulse Ox 93 L 10/16/18 07:00 Intake & Output 10/15/18 10/16/18 10/16/18 18:59 06:59 18:59 Intake Total 440 Output Total 820 425 Balance -380 -425 Intake: Intake, IV Titration 100 Amount Sodium Chloride 0.9% 1, 100 000 ml @ 50 mls/hr IV . Q20H [facility] Rx#:[id number] Oral 340 Output: Drainage 20 Right Abdomen 20 Urine 800 425 Uretheral (العراقي) 500 Other: Voiding Method Indwelling Catheter Toilet Toilet # Voids 1 - Labs CBC & Chem 7: 10/16/18 06:49 10/16/18 06:49 Labs: Abnormal Lab Results - Last 24 Hours (Table) 10/15/18 10/15/18 10/16/18 Range/Units 11:23 11:23 06:49 WBC 12.8 H 11.5 H (3.8-10.6) k/uL RBC 4.26 L (4.30-5.90) m/uL Neutrophils # 10.8 H 8.8 H (1.3-7.7) k/uL Potassium (3.5-5.1) mmol/L Chloride 112 H (98-107) mmol/L Carbon Dioxide 20 L (22-30) mmol/L BUN 24 H (9-20) mg/dL Glucose (74-99) mg/dL Calcium 8.1 L (8.4-10.2) mg/dL 10/16/18 Range/Units 06:49 WBC (3.8-10.6) k/uL RBC (4.30-5.90) m/uL Neutrophils # (1.3-7.7) k/uL Potassium 3.4 L (3.5-5.1) mmol/L Chloride 108 H (98-107) mmol/L Carbon Dioxide (22-30) mmol/L BUN 25 H (9-20) mg/dL Glucose 133 H (74-99) mg/dL Calcium 8.3 L (8.4-10.2) mg/dL Microbiology - Last 24 Hours (Table) 10/12/18 03:35 Blood Culture - Preliminary Blood No Growth after 96 hours 10/12/18 08:05 Anaerobic Culture - Preliminary Peritoneal Fluid 10/12/18 08:05 Gram Stain - Final Abdomen Wound Culture - Final
[2018-10-16] MEDS: FOLIC ACID 1 MG TAB PO SCH (11:38)
[2018-10-16] MEDS: THIAMINE 100 MG TAB PO SCH (11:38)
[2018-10-16 13:04] VITALS: BMI 29.2
[2018-10-16] MEDS ORDERED: FUROSEMIDE 10 MG/ML 2 ML VIAL IV STA (17:30)
--- NOTE | 2018-10-16 17:36 | P.PN ---
Subjective Progress Note Date: 10/16/18 Interval history:82-year-old the admitted for a perforated viscus secondary to peptic ulcer disease patient successfully underwent emergency laparotomy clinically doing well denied any symptoms patient has sluggish bowel sounds patient's abdominal surgical site area is clear patient is hypotensive takes atenolol at home which will be resumed. Patient any fever chills nausea vomiting patient the does have a العراقي catheter. 10/13/2018 Patient does not comparing and if any of pain except when he coughs. Patient still has an NG tube which is still draining will change the fluids 100 mL/h which recheck basic metabolic profile tomorrow. Patient's has sluggish bowel sounds. Did not move his bowel yet. Will use Tylenol for pain and tramadol for pain pain try to avoid opiate analgesia considering his age. 10/14/2018 passing flatus, no bowel movement. NG with minimal drainage.Pain controlled. IV fluids decreased to 100 MLS per hour. Afebrile, normal WBC. 10/15/2018 sitting up in chair, pain controlled. chest x-ray suggestive of fluid overload, small new bilateral pleural effusions. IV fluids discontinued. Positive bowel movement, burping, positive flatus. Diet advanced as per surgery. Sodium 142. Afebrile, WBC 12.8. Creatinine 0.9. Hemoglobin 13.6. 10/16/2018 Tolerating clear liquid diet. passing flatus, positive bowel movement. Yesterday gave 1 dose of Lasix for fluid overload .Chest x-ray today reporting stable mild pulmonary vascular congestion, small right greater than left pleural effusions with adjacent atelectasis/consolidation. Maintaining O2 sats of 90-95% on 2 L nasal cannula. Needs much encouragement with incentive spirometer. Creatinine down to 0.99 .Potassium 3.4. Constitutional: Denied any fatigue denied any fever. Cardio vascular: denied any chest pain, palpitations Gastrointestinal denied any nausea vomiting Pulmonary: Denied any shortness of breath, occasional cough Neurologic denied any new focal deficits Active Medications Atenolol (Tenormin) 25 mg PO DAILY [facility] Last Admin: 10/16/18 08:02 Dose: 25 mg Enoxaparin Sodium (Lovenox) 40 mg SQ DAILY [facility] Last Admin: 10/16/18 08:02 Dose: 40 mg Folic Acid (Folic Acid) 1 mg PO DAILY@1200 [facility] Last Admin: 10/16/18 11:38 Dose: 1 mg Hydromorphone HCl (Dilaudid) 0.5 mg IVP Q3HR PRN PRN Reason: Moderate Pain Last Admin: 10/15/18 04:44 Dose: 0.5 mg Metoclopramide HCl (Reglan) 10 mg IVP Q6H PRN PRN Reason: Nausea And Vomiting Metoclopramide HCl (Reglan) 10 mg IVP Q6HR [facility] Last Admin: 10/16/18 11:36 Dose: Not Given Miscellaneous Information (Potassium Per Protocol) 1 each MISCELLANE DAILY PRN ; Protocol PRN Reason: Per Protocol Naloxone HCl (Narcan) 0.2 mg IV Q2M PRN PRN Reason: Opioid Reversal Ondansetron HCl (Zofran) 4 mg IVP Q3HR PRN PRN Reason: Nausea And Vomiting Pantoprazole Sodium (Protonix) 40 mg IV DAILY [facility] Last Admin: 10/16/18 08:02 Dose: 40 mg Thiamine HCl (Vitamin B-1) 100 mg PO DAILY@1200 [facility] Last Admin: 10/16/18 11:38 Dose: 100 mg Objective - Vital Signs Vital signs: Vital Signs Temp 98.3 F 10/16/18 14:11 Pulse 63 10/16/18 14:11 Resp 18 10/16/18 08:00 BP 97/63 10/16/18 14:11 Pulse Ox 96 10/16/18 14:11 Intake & Output 10/15/18 10/16/18 10/16/18 18:59 06:59 18:59 Intake Total 440 Output Total 820 425 Balance -380 -425 Weight 84.822 kg Intake: Intake, IV Titration 100 Amount Sodium Chloride 0.9% 1, 100 000 ml @ 50 mls/hr IV . Q20H [facility] Rx#:[id number] Oral 340 Output: Drainage 20 Right Abdomen 20 Urine 800 425 Uretheral (العراقي) 500 Other: Voiding Method Indwelling Catheter Toilet Toilet # Voids 1 1 # Bowel Movements 2 - Exam GENERAL: The patient is sitting up in bed, alert and oriented x3, no acute distress. HEENT: Pupils are round and equal. No conjunctival pallor. Normocephalic, atraumatic. Oral mucosa moist CARDIOVASCULAR: S1 and S2 present. No murmurs, rubs, or gallops. PULMONARY: Nonlabored, Chest is clear to auscultation, diminished bilateral bases, no rhonchi, wheezing or crackles. ABDOMEN: Soft, bowel sounds, S/P surgery, surgical site areas are clean, hypoactive bowel sounds EXTREMITIES: No cyanosis, clubbing, or pedal edema. NEUROLOGICAL: Gross neurological examination did not reveal any focal deficits. SKIN: No rashes. - Labs CBC & Chem 7: 10/16/18 06:49 10/16/18 06:49 Labs: Abnormal Lab Results - Last 24 Hours (Table) 10/16/18 10/16/18 Range/Units 06:49 06:49 WBC 11.5 H (3.8-10.6) k/uL Neutrophils # 8.8 H (1.3-7.7) k/uL Potassium 3.4 L (3.5-5.1) mmol/L Chloride 108 H (98-107) mmol/L BUN 25 H (9-20) mg/dL Glucose 133 H (74-99) mg/dL Calcium 8.3 L (8.4-10.2) mg/dL Microbiology - Last 24 Hours (Table) 10/12/18 03:35 Blood Culture - Preliminary Blood No Growth after 96 hours Assessment and Plan Assessment: -Status post laparotomy for perforated viscus, status post repair of prepyloric duodenal ulcer -Hypertension -Atrial fibrillation, currently on Lovenox -DVT in the past -Nicotine abuse -Fluid overload, new small bilateral pleural effusions -Hypokalemia Plan: Continue current medication regime , monitoring and symptomatic treatment. Increase activity as tolerated. PT/OT. Diet advancement as per surgery . Lasix 20mg IVP X 1, again today. Potassium replacement protocol as ordered. Patient needs much encouragement to comply with hourly incentive spirometer X 10. Peritoneal fluid cultures pending. The impression and plan of care has been dictated as directed. : I performed a history and examination of this patient, discussed the same with the dictator. I agree with the dictator's note ,documented as a scribe. Any additional findings or plans will be noted.
[2018-10-17] MEDS: METOCLOPRAMIDE 5 MG/ML 2 ML VIAL IVP SCH ×4 (00:30→17:02)
[2018-10-17] MEDS: PANTOPRAZOLE 40 MG/10 ML VIAL IV SCH (09:52)
[2018-10-17] MEDS: FOLIC ACID 1 MG TAB PO SCH (09:53)
[2018-10-17] MEDS: ATENOLOL 25 MG TAB PO SCH (09:53)
[2018-10-17] MEDS: ENOXAPARIN 40 MG/0.4 ML SYRINGE SQ SCH (09:53)
[2018-10-17] MEDS: THIAMINE 100 MG TAB PO SCH (09:53)
--- NOTE | 2018-10-17 11:29 | P.PN ---
Subjective Progress Note Date: 10/17/18 HISTORY OF PRESENT ILLNESS: Patient is status post repair of prepyloric duodenal ulcer. Patient states his pain is tolerable at this time. ANTONY drain is intact with minimal serosanguineous drainage. He is passing flatus. +BM. Tolerating full liquid diet PHYSICAL EXAM: VITAL SIGNS: Currently stable. GENERAL: Well-developed in no acute distress. HEENT: No sclera icterus. Extraocular movements grossly intact. Moist buccal mucosa. Head is atraumatic, normocephalic. Hears conversational speech. No nasal drainage. NECK: Supple without lymphadenopathy. CHEST: Non-labored respirations and equal bilateral excursions. CARDIOVASCULAR: Regular rate with regular rhythm. Palpable 2+ radial pulses. ABDOMEN: Soft. Nondistended. Positive bowel sounds MUSCULOSKELETAL: No clubbing, cyanosis or edema. NEUROLOGIC: No focal or lateralizing signs. Cranial nerves II through XII grossly intact. PSYCH: Appropriate affect. Alert and oriented to person, place and time. SKIN: Well perfused. Good skin turgor. ASSESSMENT: 1. Status post repair of prepyloric duodenal ulcer PLAN: 1. Advance diet to heart healthy 2. Incentive spirometry 3. Activity as tolerated 4. Discontinue ANTONY drain 5. Anticipate discharge tomorrow to [facility] Nurse practitioner note has been reviewed by physician. Signing provider agrees with the documented findings, assessment, and plan of care. Objective - Vital Signs Vital signs: Vital Signs Temp 98.4 F 10/17/18 09:48 Pulse 64 10/17/18 09:48 Resp 16 10/17/18 09:55 BP 123/73 10/17/18 09:48 Pulse Ox 94 L 10/17/18 09:48 Intake & Output 10/16/18 10/17/18 10/17/18 18:59 06:59 18:59 Intake Total 250 957 Output Total 430 Balance -180 957 Weight 84.822 kg Intake: Oral 250 957 Output: Drainage 30 Right Abdomen 30 Urine 400 Other: Voiding Method Toilet Urinal Urinal # Voids 1 1 # Bowel Movements 2 1 - Labs CBC & Chem 7: 10/16/18 06:49 10/16/18 06:49 Labs: Microbiology - Last 24 Hours (Table) 10/12/18 03:35 Blood Culture - Preliminary Blood No Growth after 120 hours
--- NOTE | 2018-10-17 20:23 | P.PN ---
Subjective Progress Note Date: 10/17/18 Interval history:82-year-old the admitted for a perforated viscus secondary to peptic ulcer disease patient successfully underwent emergency laparotomy clinically doing well denied any symptoms patient has sluggish bowel sounds patient's abdominal surgical site area is clear patient is hypotensive takes atenolol at home which will be resumed. Patient any fever chills nausea vomiting patient the does have a العراقي catheter. 10/13/2018 Patient does not comparing and if any of pain except when he coughs. Patient still has an NG tube which is still draining will change the fluids 100 mL/h which recheck basic metabolic profile tomorrow. Patient's has sluggish bowel sounds. Did not move his bowel yet. Will use Tylenol for pain and tramadol for pain pain try to avoid opiate analgesia considering his age. 10/14/2018 passing flatus, no bowel movement. NG with minimal drainage.Pain controlled. IV fluids decreased to 100 MLS per hour. Afebrile, normal WBC. 10/15/2018 sitting up in chair, pain controlled. chest x-ray suggestive of fluid overload, small new bilateral pleural effusions. IV fluids discontinued. Positive bowel movement, burping, positive flatus. Diet advanced as per surgery. Sodium 142. Afebrile, WBC 12.8. Creatinine 0.9. Hemoglobin 13.6. 10/16/2018 Tolerating clear liquid diet. passing flatus, positive bowel movement. Yesterday gave 1 dose of Lasix for fluid overload .Chest x-ray today reporting stable mild pulmonary vascular congestion, small right greater than left pleural effusions with adjacent atelectasis/consolidation. Maintaining O2 sats of 90-95% on 2 L nasal cannula. Needs much encouragement with incentive spirometer. Creatinine down to 0.99 .Potassium 3.4. 10/17/18 Weaned off of oxygen, maintaining O2 sats of 93% on room air. ANTONY discontinued. Incentive spirometer up to 1100. Positive bowel movement. Afebrile. Peritoneal fluid culture reported no anaerobes. Currently denies pain. Objective - Vital Signs Vital signs: Vital Signs Temp 98.8 F 10/17/18 15:00 Pulse 67 10/17/18 15:00 Resp 18 10/17/18 15:00 BP 111/69 10/17/18 15:00 Pulse Ox 93 L 10/17/18 15:00 Intake & Output 10/17/18 10/17/18 10/18/18 06:59 18:59 06:59 Intake Total 250 1671 Output Total 430 Balance -180 1671 Intake: Oral 250 1671 Output: Drainage 30 Right Abdomen 30 Urine 400 Other: Voiding Method Urinal Urinal Urinal # Voids 1 1 # Bowel Movements 1 - Exam GENERAL: The patient is sitting up in bed, alert and oriented x3, no acute distress. HEENT: Pupils are round and equal. No conjunctival pallor. Normocephalic, atraumatic. Oral mucosa moist CARDIOVASCULAR: S1 and S2 present. No murmurs, rubs, or gallops. PULMONARY: Nonlabored, Chest is clear to auscultation, diminished bilateral bases, no rhonchi, wheezing or crackles. ABDOMEN: Soft, bowel sounds, S/P surgery, positive bowel sounds EXTREMITIES: No cyanosis, clubbing, or pedal edema. NEUROLOGICAL: Gross neurological examination did not reveal any focal deficits. SKIN: No rashes. Microbiology 10/12/18 08:05 Peritoneal Fluid Anaerobic Culture - Final 10/12/18 03:35 Blood Blood Culture - Preliminary No Growth after 120 hours 10/12/18 08:05 Abdomen Gram Stain - Final 10/12/18 08:05 Abdomen Wound Culture - Final - Labs CBC & Chem 7: 10/16/18 06:49 10/16/18 06:49 Labs: Microbiology - Last 24 Hours (Table) 10/12/18 08:05 Anaerobic Culture - Final Peritoneal Fluid 10/12/18 03:35 Blood Culture - Preliminary Blood No Growth after 120 hours Assessment and Plan Assessment: -Status post laparotomy for perforated viscus, status post repair of prepyloric duodenal ulcer -Hypertension -Atrial fibrillation, currently on Lovenox -DVT in the past -Nicotine abuse -Fluid overload, new small bilateral pleural effusions -Hypokalemia Plan: Continue current medication regime , monitoring and symptomatic treatment. Aggressive pulmonary toileting with incentive spirometer reinforced .Diet advancement as per surgery. Increase activity as tolerated PT/OT. Discharge planning in progress as per surgery for tomorrow to subacute rehab. The impression and plan of care has been dictated as directed. : I performed a history and examination of this patient, discussed the same with the dictator. I agree with the dictator's note ,documented as a scribe. Any additional findings or plans will be noted.
[2018-10-18] MEDS: METOCLOPRAMIDE 5 MG/ML 2 ML VIAL IVP SCH ×3 (00:25→11:45)
[2018-10-18 07:33] VITALS: BP 141/69; PULSE 79; RESP 17; TEMP 98.1
[2018-10-18] MEDS: ATENOLOL 25 MG TAB PO SCH (07:34)
[2018-10-18] MEDS: ENOXAPARIN 40 MG/0.4 ML SYRINGE SQ SCH (07:34)
[2018-10-18 08:48] LABS: Basophils % (A) 1 %; Eosinophils # (A) 0.4 k/uL (0-0.7); Eosinophils % (A) 5 %; HCT 42.9 % (39.0-53.0); HGB 13.7 gm/dL (13.0-17.5); Lymphocytes # (A) 1.5 k/uL (1.0-4.8); Lymphocytes % (A) 18 %; MCH 30.8 pg (25.0-35.0); MCHC 31.9 g/dL (31.0-37.0); MCV 96.4 fL (80.0-100.0); Mean Platelet Volume 6.7; Monocytes # (A) 0.4 k/uL (0-1.0); Monocytes % (A) 5 %; Neutrophils # (A) 5.6 k/uL (1.3-7.7); Neutrophils % (A) 69 %; Platelet Count 252 k/uL (150-450); RBC 4.45 m/uL (4.30-5.90); RDW 13.2 % (11.5-15.5)
[2018-10-18] MEDS ORDERED: PANTOPRAZOLE 40 MG TABLET PO SCH (09:00)
[2018-10-18 09:02] LABS: Anion Gap 7 mmol/L; Blood Urea Nitrogen 23 mg/dL (9-20); Calcium 8.7 mg/dL (8.4-10.2); Carbon Dioxide 31 mmol/L (22-30); Chloride 105 mmol/L (98-107); Glucose 131 mg/dL (74-99); Potassium 3.8 mmol/L (3.5-5.1); Sodium 143 mmol/L (137-145)
--- NOTE | 2018-10-18 09:30 | P.DS ---
Providers Date of admission: 10/12/18 10:23 Expected date of discharge: 10/18/18 Attending physician: Aleksandr Harrison Consults: 10/12/18 05:56 Consult Physician Routine Consulting Provider: Adolfo Velazquez Consult Reason/Comments: medical management Do you want consulting provider notified?: Yes Primary care physician: Lavern Valencia Hospital Course: 88-year-old male who presented to the emergency room with abdominal pain. patient underwent computed tomography scan and was found to have free air. Patient underwent repair of prepyloric duodenal ulcer. Patient is doing well postoperatively. He is tolerating oral intake. Having BMs. Denies nausea or vomiting. Vital signs are stable. He remains weak after surgery and requires subacute rehab at the time of discharge. See EMR for further hospital course details. Discharge Diagnosis: 1. Status post repair of prepyloric duodenal ulcer Nurse practitioner note has been reviewed by physician. Signing provider agrees with the documented findings, assessment, and plan of care. Patient Condition at Discharge: Stable Plan - Discharge Summary New Discharge Prescriptions: New Acetaminophen Tab [Tylenol Tab] 650 mg PO Q6H PRN #60 tablet PRN Reason: Pain No Action Acetaminophen Tab [Tylenol Tab] 325 mg PO BID PRN PRN Reason: Pain Atenolol [Tenormin] 25 mg PO DAILY #30 tab Folic Acid 1 mg PO DAILY@1200 #30 tab Thiamine [Vitamin B-1] 100 mg PO DAILY@1200 #30 tab Aspirin EC [Ecotrin Low Dose] 81 mg PO DAILY #1 tablet. Discharge Medication List Acetaminophen Tab [Tylenol Tab] 325 mg PO BID PRN 09/22/15 [History] Aspirin EC [Ecotrin Low Dose] 81 mg PO DAILY #1 tablet. 09/24/15 [Rx] Atenolol [Tenormin] 25 mg PO DAILY #30 tab 09/24/15 [Rx] Folic Acid 1 mg PO DAILY@1200 #30 tab 09/24/15 [Rx] Thiamine [Vitamin B-1] 100 mg PO DAILY@1200 #30 tab 09/24/15 [Rx] Acetaminophen Tab [Tylenol Tab] 650 mg PO Q6H PRN #60 tablet 10/18/18 [Rx] Follow up Appointment(s)/Referral(s): Lavern Valencia DO [Primary Care Provider] - 1-2 days Aleksandr Harrison MD [STAFF PHYSICIAN] - 1 Week Activity/Diet/Wound Care/Special Instructions: No lifting over 10 pounds You may shower. No soaking or tub baths Activity as tolerated Heart healthy diet Every other staple removed today. Please remove remaining sukhjinder on Sunday.
[2018-10-18] MEDS: THIAMINE 100 MG TAB PO SCH (11:43)
[2018-10-18] MEDS: FOLIC ACID 1 MG TAB PO SCH (11:43)
--- NOTE | 2018-10-18 15:50 | P.PN ---
Subjective 82-year-old the admitted for a perforated viscus secondary to peptic ulcer disease patient successfully underwent emergency laparotomy clinically doing well denied any symptoms patient has sluggish bowel sounds patient's abdominal surgical site area is clear patient is hypotensive takes atenolol at home which will be resumed. Patient any fever chills nausea vomiting patient the does have a العراقي catheter. 10/13/2018 Patient does not comparing and if any of pain except when he coughs. Patient still has an NG tube which is still draining will change the fluids 100 mL/h which recheck basic metabolic profile tomorrow. Patient's has sluggish bowel sounds. Did not move his bowel yet. Will use Tylenol for pain and tramadol for pain pain try to avoid opiate analgesia considering his age. 10/14/2018 passing flatus, no bowel movement. NG with minimal drainage.Pain controlled. IV fluids decreased to 100 MLS per hour. Afebrile, normal WBC. 10/15/2018 sitting up in chair, pain controlled. chest x-ray suggestive of fluid overload, small new bilateral pleural effusions. IV fluids discontinued. Positive bowel movement, burping, positive flatus. Diet advanced as per surgery. Sodium 142. Afebrile, WBC 12.8. Creatinine 0.9. Hemoglobin 13.6. 10/16/2018 Tolerating clear liquid diet. passing flatus, positive bowel movement. Yesterday gave 1 dose of Lasix for fluid overload .Chest x-ray today reporting stable mild pulmonary vascular congestion, small right greater than left pleural effusions with adjacent atelectasis/consolidation. Maintaining O2 sats of 90-95% on 2 L nasal cannula. Needs much encouragement with incentive spirometer. Creatinine down to 0.99 .Potassium 3.4. 10/17/18 Weaned off of oxygen, maintaining O2 sats of 93% on room air. ANTONY discontinued. Incentive spirometer up to 1100. Positive bowel movement. Afebrile. Peritoneal fluid culture reported no anaerobes. Currently denies pain. 10/18/2018 No overnight events, patient is clinically doing well. is okay to be discharged to subacute rehabilitation today Constitutional: Denied any fatigue denied any fever. Cardio vascular: denied any chest pain, palpitations Gastrointestinal denied any nausea vomiting Pulmonary: Denied any shortness of breath cough Neurologic denied any new focal deficits All inpatient medications were reviewed and appropriate changes in these medications as dictated in the interval history and assessment and plan. Objective - Vital Signs Vital signs: Vital Signs Temp 98.1 F 10/18/18 07:00 Pulse 79 10/18/18 07:00 Resp 17 10/18/18 07:30 BP 141/69 10/18/18 07:00 Pulse Ox 99 10/18/18 07:00 Intake & Output 10/17/18 10/18/18 10/18/18 18:59 06:59 18:59 Intake Total 1671 Balance 1671 Weight 84.822 kg Intake: Oral 1671 Other: Voiding Method Urinal Urinal Urinal # Voids 1 1 2 # Bowel Movements 2 1 - Exam GENERAL: The patient is sitting up in bed, alert and oriented x3, no acute distress. HEENT: Pupils are round and equal. No conjunctival pallor. Normocephalic, atraumatic. Oral mucosa moist CARDIOVASCULAR: S1 and S2 present. No murmurs, rubs, or gallops. PULMONARY: Nonlabored, Chest is clear to auscultation, diminished bilateral bases, no rhonchi, wheezing or crackles. ABDOMEN: Soft, bowel sounds, S/P surgery, positive bowel sounds EXTREMITIES: No cyanosis, clubbing, or pedal edema. NEUROLOGICAL: Gross neurological examination did not reveal any focal deficits. SKIN: No rashes. - Labs CBC & Chem 7: 10/18/18 07:27 10/18/18 07:27 Labs: Abnormal Lab Results - Last 24 Hours (Table) 10/18/18 Range/Units 07:27 Carbon Dioxide 31 H (22-30) mmol/L BUN 23 H (9-20) mg/dL Glucose 131 H (74-99) mg/dL Microbiology - Last 24 Hours (Table) 10/12/18 03:35 Blood Culture - Final Blood No Growth after 144 hours 10/12/18 08:05 Anaerobic Culture - Final Peritoneal Fluid Assessment and Plan Plan: -Status post laparotomy for perforated viscus, status post repair of prepyloric duodenal ulcer, patient will be discharged on Prilosec -Hypertension -Atrial fibrillation, because of his age patient is probably not a candidate for chronic anticoagulation -DVT in the past -Nicotine abuse -Fluid overload, new small bilateral pleural effusions
== END 2018-10-18 13:10 | DRG 331 ==
LOC: EC 01:39 → 4SSUR 05:54 → OBSVTOIN 10:23
PROVIDERS: ADMIT Surgery; ATTEND Surgery
PROC: 0DU907Z Supplement Duodenum with Autologous Tissue Substitute, Open Approach (ICD-10-PCS; principal; 2018-10-12 07:00)
DX: K26.5 Chronic or unspecified duodenal ulcer with perforation (principal); I48.91 Unspecified atrial fibrillation; E87.70 Fluid overload, unspecified; E87.6 Hypokalemia; H35.30 Unspecified macular degeneration; I10 Essential (primary) hypertension; F17.200 Nicotine dependence, unspecified, uncomplicated; Z79.82 Long term (current) use of aspirin; Z79.899 Other long term (current) drug therapy; Z88.2 Allergy status to sulfonamides; Z90.49 Acquired absence of other specified parts of digestive tract; Z86.718 Personal history of other venous thrombosis and embolism
CPT/HCPCS: 36415; 71046; 74176; 80048; 80053; 81003; 82150; 83690; 83735; 85025; 85610; 85730; 86850; 86900; 86901; 87040; 87070; 87075; 87205; 96365; 96366; 96374; 96375; 96376; 99285